=== PATIENT | male | born 1940 | race Caucasian/White ===

== ENCOUNTER 2018-02-09 16:08 | Emergency (ER) | payer MEDICARE, MEDICAID ==
[~2018-02-09] VITALS: Ht 177.8 cm; Wt 86.6 kg
--- NOTE | 2018-02-09 16:10 | NUR ---
PRESENTS TO ER C/O INGUINAL HERNIA. PATIENT DENIES TRAUMA. A/OX 4, BREATHING EVEN AND UNLABORED. NO SOB, NAD, VITALS STABLE. SAFETY AND COMFORT MEASURES IN PLACE. AWAITING MD ORDERS.
--- NOTE | 2018-02-09 17:00 | NUR ---
NEW IV STARTED ON RAC, 18G. BLOOD DRAWN AND SENT TO LAB.
[2018-02-09 17:13] LABS: BASOPHILS % (AUTO) 0.2 % (0.0-2.0); EOSINOPHILS % (AUTO) 0.1 % (0.0-6.0); HEMATOCRIT 43 % (39-51); HEMOGLOBIN 14.6 g/dL (13.5-17.5); LYMPHOCYTES # (AUTO) 0.8 /CMM (0.8-4.8); LYMPHOCYTES % (AUTO) 16.1 % (20.0-44.0); MEAN CORPUSCULAR HEMOGLOBIN 30 PG (26.0-33.0); MEAN CORPUSCULAR HGB CONC 34 g/dl (31.0-36.0); MEAN CORPUSCULAR VOLUME 89 fL (80-96); MONOCYTES # (AUTO) 0.3 /CMM (0.1-1.30); MONOCYTES % (AUTO) 6.4 % (2.0-12.0); NEUTROPHILS # (AUTO) 4.1 /CMM (1.8-8.9); NEUTROPHILS % (AUTO) 77.2 % (43.0-81.0); PLATELET COUNT (AUTO) 134 /CMM (150-450); RDW COEFFICIENT OF VARIATION 12.9 (11.5-15.0); RED BLOOD CELL COUNT(AUTO) 4.82 MIL/uL (4.5-6.0); WHITE BLOOD COUNT (AUTO) 5.2 K/uL (4.3-11.0)
[2018-02-09 17:18] LABS: CALCIUM, SERUM 8.7 mg/dL (8.5-10.1); CARBON DIOXIDE 28 mmol/L (21-32); CHLORIDE 100 mmol/L (98-107); CREATININE 1.1 mg/dL (0.6-1.3); GLUCOSE 173 mg/dL (74-106); POTASSIUM 4.1 mmol/L (3.5-5.1); SODIUM SERUM 133 mmol/L (136-145); UREA NITROGEN, BLOOD 17 mg/dL (7-18)
[2018-02-09 17:22] LABS: INR 0.93 (0.85-1.15)
[2018-02-09] MEDS ORDERED: IV NS 0.9% 250 ML IV ONE (17:28)
[2018-02-09] MEDS ORDERED: CT SWABBABLE VALVE TRANS SET 1 EA INFUS.SET MC ONE (17:28)
[2018-02-09] MEDS ORDERED: IOHEXOL-300 100 ML VIAL IV ONE (17:28)
--- NOTE | 2018-02-09 17:29 | NUR ---
PATIENT TAKEN TO RADIOLOGY VIA STRETCHER.
--- NOTE | 2018-02-09 19:13 | NUR ---
PER MD, CALLED RADIOLOGY TO CANCEL MRI SCAN.
--- NOTE | 2018-02-09 19:16 | NUR ---
REPORT GIVEN TO PEYTON JEFF FOR [facility]E.
--- NOTE | 2018-02-09 19:18 | NUR ---
RECEIVED REPORT FROM OTMER LÓPEZ FOR [facility]. PT RESTING IN BED WITH NO S/S OF ACUTE DISTRESS NOTED. WILL CONTINUE TO MONITOR PT.
--- NOTE | 2018-02-09 19:30 | NUR ---
Patient does not wish to proceed with medical care recommended by Dr. SOLORZANO ). Patient given information related to possible complications, up to and including , which could occur as a result of leaving the hospital at this time. Patient verbalizes understanding of risks involved due to leaving against medical advice. Patient has signed AMA form.IV removed. Catheter intact and site benign. Pressure and 4x4 applied to site. No bleeding noted. PT AMBULATED WITH STEADY GAIT NOTED.Patient discharged to home in stable condition. Written and verbal after care instructions given. Patient verbalizes understanding of instructions and risks involved with leaving AMA.
[2018-02-09 19:32] VITALS: BP 162/100
== END 2018-02-09 19:33 | disposition left against medical advice (07) ==
LOC: ER 16:14
DX: K40.90 Unilateral inguinal hernia, without obstruction or gangrene, not specified as recurrent (principal); I10 Essential (primary) hypertension; F17.200 Nicotine dependence, unspecified, uncomplicated; R93.0 Abnormal findings on diagnostic imaging of skull and head, not elsewhere classified
CPT/HCPCS: 36415; 70450; 74177; 80048; 85025; 85730; 99285; A4606; J7050; Q9967; Z7610